=== PATIENT | female | born 1995 | race Two or more races ===

== ENCOUNTER 2016-12-18 09:19 | Emergency (ER) | payer MEDICAID ==
--- NOTE | 2016-12-18 09:40 | EDPHY ---
H & P Time Seen by Provider: 12/18/16 09:27 HPI/ROS: This patient complains of left hand injury that occurred 1 week ago. She explains that she grabbed a pole that was at a 45 degree angle to the ground and then hopped over it, but did not let go and time with her left hand and felt a pop at the base of the 2nd metacarpal with immediate severe pain. Over the past week she reports that the pain has diminished from its initial severe intensity and has nearly resolved at rest but with certain movements such as opening a door knob, she has abrupt sharp pain that recurs at the same location. She denies any other injuries or other complaints. ROS: Neuro: No numbness or tingling. Musculoskeletal: No other injuries 5 point ROS is otherwise negative Past Medical/Surgical History: Otherwise healthy Smoking Status: Never smoked Physical Exam: Physical Exam Vital signs are normal. General: No acute distress Eyes: Pupils equal and react to light. Extraocular motions are intact. Cardiac: Brisk capillary refill is intact throughout. Pulses are 2+ and symmetric in the affected extremity. Skin: No rash or pallor. Extremities: Atraumatic normal except for left hand Left hand: She has tenderness at the proximal 2nd metacarpal and increased pain with external rotation while gripping the hand. No significant ecchymosis or swelling. No anatomical snuffbox tenderness or other tenderness is appreciated. Neuro: Alert with no sensorimotor deficits in the affected hand. Initial differential diagnosis: Avulsion fracture, tendon strain or rupture, muscle strain, sprain Constitutional: Initial Vital Signs Temperature (C) 36.6 C 12/18/16 09:26 Heart Rate 64 12/18/16 09:26 Respiratory Rate 18 12/18/16 09:26 Blood Pressure 113/49 L 12/18/16 09:26 O2 Sat (%) 98 12/18/16 09:26 O2 Delivery Mode Room Air Allergies/Adverse Reactions: No Known Allergies Allergy (Verified 04/08/15 07:24) Home Medications: Medication Instructions Recorded NK [No Known Home Meds] 12/18/16 MDM/Departure - MDM Imaging Results: Imaging Impressions Hand X-Ray 12/18/16 09:33 Impression: Second metacarpal base fracture. Imaging: I viewed and interpreted images myself ED Course/Re-evaluation: I discussed the case with Dr. Da Baltazar-ortho hand specialist on-call who suggests the radial gutter for splinting and will follow up with her in his office. Discussion: Small nondisplaced avulsion fracture at the base of the 2nd metacarpal, neurovascularly intact without complications Patient is placed in a Orthoglass ulnar gutter splint by our david Holman with my supervision. Patient is neurovascularly intact post splint application. I counseled her regarding her fracture. - Depart Disposition: Home, Routine, Self-Care Clinical Impression: Closed fracture of 2nd metacarpal Qualifiers: Encounter type: initial encounter Metacarpal location: base Fracture alignment : nondisplaced Laterality: left Qualified Code(s): S62.341A - Nondisplaced fracture of base of second metacarpal bone. left hand, initial encounter for closed fracture Condition: Good Instructions: Hand Fracture (ED) Additional Instructions: Diagnosis: 2nd metacarpal hand fracture Plan: Keep the splint on at all times. Keep the splint clean and dry Call Dr. Da Baltazar-hand specialist arrange follow-up appointment for further evaluation and treatment. Ibuprofen and Tylenol for pain as needed. Limit activity with the left hand until healed. Return for any significant worsening despite treatment plan Referrals: NONE *PRIMARY CARE P,. [Primary Care Provider] - As per Instructions Da Baltazar MD [Medical Doctor] - As per Instructions
[2016-12-18 10:27] VITALS: BP 110/51; PULSE 66; RESP 16; TEMP 97.9; O2SAT 96
== END 2016-12-18 10:30 | disposition home or self-care (01) ==
LOC: CED 09:19
PROC: 2W3DX1Z Immobilization of Left Lower Arm using Splint (ICD-10-PCS; principal; 2016-12-18)
DX: S62.341A Nondisplaced fracture of base of second metacarpal bone, left hand, initial encounter for closed fracture (principal); X58.XXXA Exposure to other specified factors, initial encounter
CPT/HCPCS: 73130-PO

== ENCOUNTER 2017-09-02 11:40 | Emergency (ER) | payer MEDICAID ==
[2017-09-02 11:50] VITALS: BP 109/58; PULSE 73; RESP 18; TEMP 98.2; O2SAT 97
--- NOTE | 2017-09-02 12:12 | EDPHY ---
H & P Time Seen by Provider: 09/02/17 11:52 HPI/ROS: HPI Left hand injury. 22-year-old female. She is right-hand dominant. She presents by private vehicle. She has a history of a left hand 2nd metacarpal fracture from last November. She reports she has been moving furniture and pushing and lifting using her left hand. She reports a vague pain/discomfort to the mid metacarpal area and greater thenar eminence when she is in an extreme Coffey flexion position at the wrist. She denies any specific acute traumatic event. She reports that her hand has been bothering her today. She is concerned that she may have re- injured her 2nd metacarpal fracture site. She works as a massage therapist. ROS: Constitutional: No fever, no chills. No weakness. Musculoskeletal: As above. No other extremity pain. Skin: No rashes. No lacerations or abrasions. Neurological: No focal weakness or altered sensation. Past medical history: As above. Scabies. Social history: Nonsmoker. No alcohol. Here by herself. Physical Exam: General Appearance: Alert, no distress. This patient is responding to questions appropriately and in full sentences. This patient appears well- hydrated and well-nourished. Eyes: Pupils equal and round no pallor or injection. No lid edema, erythema or injection. Left hand exam: There is no tenderness on palpation of the bony aspects and soft tissue aspects of the left hand. Specifically no tenderness on palpation of the 2nd metacarpal. There is no swelling, erythema, edema or ecchymosis noted. There is no pain on axial compression of all digits as well as the metacarpals and wrist. No snuffbox tenderness. The left hand is neurovascularly intact. Neurological: Motor sensory function is grossly intact. Cranial nerves are normal. Gait is normal. Skin: Warm and dry, no rashes. Musculoskeletal: Neck is supple and nontender. Extremities are symmetrical. All joints range without pain or impingement. Psychiatric: No agitation. No depression. Database: EKG: Imaging: Procedures: Emergency department course: Vital signs reviewed and are normal. Her examination and presentation are not consistent with fracture, dislocation or subluxation. I do not feel she requires imaging at this time. She was placed in a Velcro volar hand/wrist splint. I will have her take ibuprofen for the next 3 days. She will follow up with her primary care physician on Tuesday for re-evaluation or return here for recheck and any further management. She is in agreement with this plan. Return to emergency department precautions thoroughly reviewed. All of her questions were answered. She was discharged in good condition. Differential Diagnosis: The differential diagnosis on this patient includes but is not limited to left hand sprain. Fracture subluxation, dislocation unlikely. This represents a partial list of diagnoses considered. These considerations are based on history , physical exam, past history, reassessment and diagnostic testing. Smoking Status: Never smoked Constitutional: Initial Vital Signs Temperature (C) 36.8 C 09/02/17 11:47 Heart Rate 73 09/02/17 11:47 Respiratory Rate 18 09/02/17 11:47 Blood Pressure 109/58 L 09/02/17 11:47 O2 Sat (%) 97 09/02/17 11:47 O2 Delivery Mode Room Air Allergies/Adverse Reactions: No Known Allergies Allergy (Verified 09/02/17 12:03) Home Medications: Medication Instructions Recorded NK [No Known Home Meds] 12/18/16 Departure - Departure Disposition: Home, Routine, Self-Care Clinical Impression: Sprain of left hand Condition: Good Instructions: Hand Sprain (ED) Additional Instructions: Read and follow provided instructions. Follow-up with your primary care physician on Tuesday for re-evaluation as discussed. You can also return here for follow-up if needed. Ibuprofen dosin mg every 6 hours with meals for the next 3 days only. Take only as needed for pain. Return to the emergency department for worsening pain, swelling, discoloration, numbness or weakness or other serious concerns. Referrals: NONE *PRIMARY CARE P,. [Primary Care Provider] - As per Instructions
== END 2017-09-02 12:17 | disposition home or self-care (01) ==
LOC: CED 11:40
DX: S63.92XA Sprain of unspecified part of left wrist and hand, initial encounter (principal); X58.XXXA Exposure to other specified factors, initial encounter
CPT/HCPCS: L3908

== ENCOUNTER 2018-06-06 10:42 | Emergency (ER) | payer MEDICAID ==
[2018-06-06] MEDS ORDERED: NS 1,000 ML IV ONE (11:17)
--- NOTE | 2018-06-06 11:20 | EDPHY ---
H & P Stated Complaint: upper abd pain started this morning at 7am, intermittent, denies fevers Time Seen by Provider: 06/06/18 11:04 HPI/ROS: CHIEF COMPLAINT: Abdominal pain HISTORY OF PRESENT ILLNESS: Patient is a 22-year-old female with no significant past medical history who comes to the emergency department complaining of epigastric pain that began when she awoke this morning around 7: 00 a.m.. She states that it was crampy in nature and sharp. She states that it radiated down to her lower abdomen as well. No urinary symptoms. She denies vaginal bleeding or discharge. She denies . She has no concerns for STD. She had no back pain. No history of abdominal surgery. Not associated with food or eating. She was concerned because her friend had appendicitis with similar symptoms a few months ago. Patient has not had a fever. No vomiting but did feel slightly nauseous. No diarrhea. Her symptoms have now resolved. They lasted for about 3 hr. Severity: Moderate Modifying factors: Resolved with time REVIEW OF SYSTEMS: Constitutional: denies: chills, fever, recent illness, recent injury EENTM: denies: blurred vision, double vision, nose congestion Respiratory: denies: cough, shortness of breath Cardiac: denies: chest pain, irregular heart rate, lightheadedness, palpitations Gastrointestinal/Abdominal: See HPI Genitourinary: denies: dysuria, frequency, hematuria, pain Musculoskeletal: denies: joint pain, muscle pain Skin: denies: lesions, rash, jaundice, bruising Neurological: denies: headache, numbness, paresthesia, tingling, dizziness, weakness Hematologic/Lymphatic: denies: blood clots, easy bleeding, easy bruising Immunologic/allergic: denies: HIV/AIDS, transplant 10 systems reviewed and negative except as noted EXAM: GENERAL: Well-appearing, well-nourished and in no acute distress. HEAD: Atraumatic, normocephalic. EYES: Pupils equal round and reactive to light, extraocular movements intact, sclera anicteric, conjunctiva are normal. ENT: TMs normal, nares patent, oropharynx clear without exudates. Moist mucous membranes. NECK: Normal range of motion, supple without lymphadenopathy or JVD. LUNGS: Breath sounds clear to auscultation bilaterally and equal. No wheezes rales or rhonchi. HEART: Regular rate and rhythm without murmurs, rubs or gallops. ABDOMEN: Soft, nontender, normoactive bowel sounds. No guarding, no rebound. No masses appreciated. BACK: No CVA tenderness, no spinal tenderness, step-offs or deformities EXTREMITIES: Normal range of motion, no pitting or edema. No clubbing or cyanosis. NEUROLOGICAL: Cranial nerves II through XII grossly intact. Normal speech, normal gait. 5/5 strength, normal movement in all extremities, normal sensation , normal reflexes PSYCH: Normal mood, normal affect. SKIN: Warm, dry, normal turgor, no visible rashes or lesions. Source: Patient Exam Limitations: No limitations - Personal History LMP (Females 10-55): 22-28 Days Ago Tetanus Vaccine Date: within 10 years - Medical/Surgical History Hx Asthma: No Hx Chronic Respiratory Disease: No Hx Diabetes: No Hx Cardiac Disease: No Hx Renal Disease: No Hx Cirrhosis: No Hx Alcoholism: No Hx HIV/AIDS: No Hx Splenectomy or Spleen Trauma: No Other PMH: fx of second metacarpal left hand - Family History Significant Family History: No pertinent family hx - Social History Smoking Status: Never smoked Alcohol Use: Sober Drug Use: None Constitutional: Initial Vital Signs Temperature (C) 36.9 C 06/06/18 10:54 Heart Rate 68 06/06/18 10:54 Respiratory Rate 18 06/06/18 10:54 Blood Pressure 118/65 06/06/18 10:54 O2 Sat (%) 96 06/06/18 10:54 O2 Delivery Mode Room Air Allergies/Adverse Reactions: No Known Allergies Allergy (Verified 06/06/18 10:54) Home Medications: Medication Instructions Recorded NK [No Known Home Meds] 12/18/16 Medical Decision Making - Diagnostics Imaging Results: Imaging Impressions Abdomen Ultrasound 06/06/18 11:17 Impression: No cholelithiasis or biliary ductal dilation. Findings and recommendations discussed with Emergency Department physician, Jacky Pineda at 1208 hour, 06/06/2018. Final report concurs with initial preliminary interpretation. Pelvic/Renal Ultrasound 06/06/18 11:17 Impression: 1. No ovarian torsion. 2. IUD is malpositioned in the lower uterine segment obliquely oriented and therefore surgical consult with gynecology is recommended. 3. Left adnexal complex vascular 2.3 x 1.9 x 1.5 cm lesion which may represent a hemorrhagic cyst among other etiologies. Recommend follow-up ultrasound in 6- 12 weeks to ensure resolution. 4. Small amount of free fluid in the pelvis. Findings and recommendations discussed with Emergency Department physician, Jacky Pineda at 1210 hour, 06/06/2018. Final report concurs with initial preliminary interpretation. Imaging: Discussed imaging studies w/ call center director Radiologist ED Course/Re-evaluation: 12:30 p.m. the patient is now symptom free. We discussed her lab results and ultrasound which are reassuring. I suspect that she had a ruptured ovarian cyst. Her symptoms have resolved spontaneously. We also discussed the placement of her IUD. She will follow up with her OBGYN for readjustment or removal. I warned her that it may not be effective where it is. She is not having any lower suprapubic or vaginal pain or discharge. Differential Diagnosis: Partial list of the Differential diagnosis considered include but were not limited to; ovarian cyst, urinary tract infection and although unlikely based on the history and physical exam, I also considered kidney stone, appendicitis, biliary disease, peptic ulcer disease. I discussed these differential diagnoses and the plan with the patient as well as the usual and expected course. The patient understands that the diagnosis is provisional and that in medicine we are not always correct and that further workup is often warranted. Usual and customary warnings were given. All of the patient's questions were answered. The patient was instructed to return to the emergency department should the symptoms at all worsen or return, otherwise to followup with the physician as we discussed. - Data Points Laboratory Results: 06/06/18 11:21 POC Sodium 139 mEq/L mEq/L (135-145) POC Potassium 3.7 mEq/L mEq/L (3.3-5.0) POC Chloride 107.0 mEq/L mEq/L (97-110) POC Total CO2 24 mEq/L mEq/L (22-31) POC BUN 8 mg/dL mg/dL (7-23) POC Creatinine 1.0 mg/dL mg/dL (0.6-1.0) POC Glucose 84 mg/dL mg/dL (70-100) POC Calcium 9.4 mg/dL mg/dL (8.5-10.4) POC Total Bilirubin 0.9 mg/dL mg/dL (0.1-1.4) POC AST 24 IU/L IU/L (14-46) POC ALT 19 IU/L IU/L (9-52) POC Alk Phosphatase 63 IU/L IU/L (38-126) POC Total Protein 7.1 g/dL g/dL (6.3-8.2) POC Albumin 4.2 g/dL g/dL (3.5-5.0) Medications Given: Discontinued Medications Sodium Chloride (Ns) 1,000 mls @ 0 mls/hr IV EDNOW ONE; Wide Open PRN Reason: Protocol Stop: 06/06/18 11:18 Last Admin: 06/06/18 12:09 Dose: 1,000 mls Point of Care Test Results: CBC CBC Collection Date 06/06/18 CBC Collection Time 11:15 WBC 6.9 RBC 4.17 HGB 12.6 HCT 37.0 PLT 267 Neut # 4.3 Neut 62.8 LYMPH # 2.0 LYMPH 29.0 Other WBC # 0.6 Other WBC 8.2 MCV 88.7 Chemistry 06/06/18 11:21 POC Sodium 139 mEq/L mEq/L (135-145) POC Potassium 3.7 mEq/L mEq/L (3.3-5.0) POC Chloride 107.0 mEq/L mEq/L (97-110) POC Total CO2 24 mEq/L mEq/L (22-31) POC BUN 8 mg/dL mg/dL (7-23) POC Creatinine 1.0 mg/dL mg/dL (0.6-1.0) POC Glucose 84 mg/dL mg/dL (70-100) POC Calcium 9.4 mg/dL mg/dL (8.5-10.4) POC Total Bilirubin 0.9 mg/dL mg/dL (0.1-1.4) POC AST 24 IU/L IU/L (14-46) POC ALT 19 IU/L IU/L (9-52) POC Alk Phosphatase 63 IU/L IU/L (38-126) POC Total Protein 7.1 g/dL g/dL (6.3-8.2) POC Albumin 4.2 g/dL g/dL (3.5-5.0) Urine Collection Date 06/06/18 Collection Time 11:00 HCG Results Negative Urine Dip Collection Date 12/11/18 Collection Time 11:00 Specific [place] (1.002-1.030) 1.015 PH (5.0-7.5) 8.5 Leukocytes (Negative) Negative Nitrites (Negative) Negative Protein (Negative) Negative Glucose (Negative) Negative Ketones (Negative) 1+ Urobilnogen (0.2-1.0 EU) 0.2 Bilirubin (Negative) Negative Blood (Negative) Negative Departure - Departure Disposition: Home, Routine, Self-Care Clinical Impression: Abdominal pain Qualifiers: Abdominal location: generalized Qualified Code(s): R10.84 - Generalized abdominal pain Condition: Fair Instructions: Acute Abdominal Pain (ED) Additional Instructions: Have your OBGYN readjust your IUD. Return to the emergency department if her pain worsens or returns. Referrals: NONE *PRIMARY CARE P,. [Primary Care Provider] - As per Instructions DIPTI MACARIO [Retired Resigned] - As per Instructions
[2018-06-06 13:24] VITALS: BP 105/65
== END 2018-06-06 12:34 | disposition home or self-care (01) ==
LOC: CED 10:42
DX: R10.13 Epigastric pain (principal); R93.5 Abnormal findings on diagnostic imaging of other abdominal regions, including retroperitoneum; T83.32XA Displacement of intrauterine contraceptive device, initial encounter; E86.9 Volume depletion, unspecified
CPT/HCPCS: 76705-PO; 76856-PO; 80053-PO